=== PATIENT | female | born 1995 | race Caucasian/White ===

== ENCOUNTER → 2020-03-15 12:07 | Outpatient (CLI) | payer OTHER, SELFPAY ==
[2020-03-15 13:09] LABS: hCG Titer Quant., Serum 4 mIU/mL (1-3)
== END ==
LOC: LAB 12:11
PROVIDERS: Referring Provider Obstetrics & Gynecology; Visit Provider Obstetrics & Gynecology
DX: O20.0 Threatened abortion (principal); Z3A.00 Weeks of gestation of pregnancy not specified
CPT/HCPCS: 36415; 84702; 86850; 86900; 86901